=== PATIENT | male | born 1935 | race Caucasian/White ===

== ENCOUNTER 2017-02-16 07:03 | Day surgery (SDC) | payer MEDICARE ==
[~2017-02-16 07:03] MED LIST: ALEVE220 M3 PO; ASPIRIN325 M3 PO; CO Q-10; CURAMIN; FAMOTIDINE40 M3 PO; GLUCOSAMINE; MEN'S ONE DAIL1 EACH PO; METOPROLOL SUCC25 M1 PO; OMEGA 3; PREDNISONE5 M1 PO; SYNTHROID25 MC1 PO; TUMERIC; VITAMIN B12
[2017-02-16 08:07] LABS: BASO % 0.1 % (0-2); EOS % 0.6 % (0-7); EOSINOPHIL ABSOLUTE COUNT 0.1 tho/cmm (0.0-0.7); HCT-HEMATOCRIT 37.3 % (36.0-53.5); HGB-HEMOGLOBIN 12.3 gm/dl (13.5-17.0); IMMATURE GRANULOCYTES ABSOLUTE 0.04 tho/cmm (0-0.03); IMMATURE GRANULOCYTES PERCENT 0.4 % (0-0.3); LYMPH % 18.9 % (20-45); LYMPH ABSOLUTE COUNT 1.7 tho/cmm (0.8-4.5); MCH (MEAN CORPUSCULAR HGB) 27.7 pg (28.0-32.0); MEAN PLATELET VOLUME 8.3 cmc (9.4-12.4); MONO % 5.4 % (0-12); MONOCYTE ABSOLUTE COUNT 0.5 tho/cmm (0.0-1.2); NEUTROPHIL ABSOLUTE COUNT 6.7 tho/cmm (1.6-8.0); NEUTROPHIL-AUTOMATED 6.7 tho/cmm (1.6-8.0); NEUTROPHILS % 74.6 % (40-80); PLATELET COUNT 282 tho/cmm (150-450); RED BLOOD COUNT 4.44 mil/cmm (4.40-5.70); RED CELL DISTRIBUTION WIDTH 13.4 % (12.4-16.4)
[2017-02-16 08:17] LABS: ANION GAP 12 mmol/L (0-20); BLOOD UREA NITROGEN 16 mg/dl (6-24); CALCIUM 9.4 mg/dl (8.5-10.5); CARBON DIOXIDE-VENOUS 27 mmol/L (22-32); CHLORIDE 108 mmol/l (96-110); CREATININE 0.94 mg/dl (0.60-1.30); GLUCOSE 96 mg/dL (70-110); SODIUM 142 mmol/L (135-145); eGFR VALUE FOR BLACK 88 mL/Min
[2017-02-16 08:18] LABS: POTASSIUM 4.5 mmol/L (3.7-5.1)
== END 2017-02-16 12:30 ==
LOC: SRG 07:03 → SHSB 07:08 → ORW 08:40 → PACU 09:34 → SHSB 10:15
PROVIDERS: Specialist
PROC: 0WQF0ZZ Repair Abdominal Wall, Open Approach (ICD-10-PCS; principal; 2017-02-16)
DX: K42.9 Umbilical hernia without obstruction or gangrene (principal); E78.5 Hyperlipidemia, unspecified; M19.90 Unspecified osteoarthritis, unspecified site; E03.9 Hypothyroidism, unspecified; H26.9 Unspecified cataract; J45.909 Unspecified asthma, uncomplicated; J44.9 Chronic obstructive pulmonary disease, unspecified; K21.9 Gastro-esophageal reflux disease without esophagitis; R00.1 Bradycardia, unspecified; Z79.82 Long term (current) use of aspirin; Z79.899 Other long term (current) drug therapy; Z88.1 Allergy status to other antibiotic agents; Z88.5 Allergy status to narcotic agent; Z88.8 Allergy status to other drugs, medicaments and biological substances; Z87.891 Personal history of nicotine dependence; Z90.49 Acquired absence of other specified parts of digestive tract; Z90.89 Acquired absence of other organs; Z90.79 Acquired absence of other genital organ(s); Z95.0 Presence of cardiac pacemaker; Z98.890 Other specified postprocedural states
CPT/HCPCS: J0690; J1720; J2765